=== PATIENT | female | born 1970 | race Caucasian/White ===

== ENCOUNTER 2021-02-20 18:13 | Emergency (ER) | payer OTHER ==
[~2021-02-20] VITALS: Ht 160 cm; Wt 90.7 kg
[~2021-02-20 18:13] MED LIST: FLUO10; FLUO20; FLUO20 PO; IBUPROFEN PO; MULVITMINE PO; OXYACE5T PO
== END 2021-02-20 19:36 | disposition home or self-care (01) ==
LOC: ER 18:13
DX: U07.1 COVID-19 (principal)
CPT/HCPCS: 99283-25

== ENCOUNTER → 2022-12-02 | Outpatient (CLI) | payer OTHER ==
[2022-12-02 14:41] LABS: Percent Saturation 14.4 % (15.0-50.0)
== END | disposition home or self-care (01) ==
LOC: LAB SHORT 09:44 → LAB 09:44
PROVIDERS: Internal Medicine Hematology & Oncology
DX: D50.0 Iron deficiency anemia secondary to blood loss (chronic) (principal)
CPT/HCPCS: 82728; 83540; 83550

== ENCOUNTER 2023-02-25 10:07 | Day surgery (SDC) | payer OTHER ==
[2023-02-23 16:05] LABS: BASOPHILS ABSOLUTE AUTO 0.04 K/mm3 (0.00-0.23); BASOPHILS PERCENT AUTO 1 % (0-2); EOSINOPHILS ABSOLUTE AUTO 0.16 K/mm3 (0.00-0.68); EOSINOPHILS PERCENT AUTO 2 % (0-6); Hematocrit 40.6 % (33.0-51.0); Hemoglobin 13.6 g/dL (11.5-16.0); IMMATURE GRAN ABSOLUTE AUTO 0.02 K/mm3 (0.00-0.10); IMMATURE GRAN PERCENT AUTO 0 % (0-1); LYMPHOCYTES ABSOLUTE AUTO 2.35 K/mm3 (0.84-5.20); LYMPHOCYTES PERCENT AUTO 34 % (21-46); MONOCYTES ABSOLUTE AUTO 0.35 K/mm3 (0.16-1.47); MONOCYTES PERCENT AUTO 5 % (4-13); Mean Corpuscular HGB 29.7 pg (26.0-34.0); Mean Corpuscular HGB Conc 33.5 g/dL (31.5-36.5); Mean Corpuscular Volume 89 fL (80-100); Mean Platelet Volume 10.8 fL (9.1-12.4); NEUTROPHILS ABSOLUTE AUTO 4.07 K/mm3 (1.96-9.15); NEUTROPHILS PERCENT AUTO 58 % (41-73); Platelet Count 230 K/mm3 (150-400); RDW Coefficient Variation 13.7 % (11.7-14.2); RDW Standard Deviation 44.1 fL (35.1-46.3); Red Blood Cell Count 4.58 M/mm3 (3.80-5.20); White Blood Cell Count 6.99 K/mm3 (4.00-11.30)
[2023-02-25] VITALS (16 sets, daily range): BP systolic 109–158; BP diastolic 63–107
[~2023-02-25] VITALS: Ht 160 cm; Wt 91.1 kg
--- NOTE | 2023-02-25 11:03 | NUR ---
Ambulatory in Day Surgery. History, Chart, Medications and Allergies reviewed before start of procedure. Lungs clear T/O to Auscultation. Patient confirms NPO status and agrees with scheduled surgery. Pre-Op teaching done. Pt verbalizes understanding. Patient States Post-Procedure ride home has been arranged. PT BELONGINGS PLACED UNDER[facility]ATH [facility] FOR SAFEKEEPING.
--- NOTE | 2023-02-25 16:56 | NUR ---
PT ARRIVED TO THE ROOM FROM PACU AT APPROXIMATELY 1650. PT DENIES PAIN AND NAUSEA. SHE IS TOLERATING CLEAR LIQUIDS. SCANT VAGINAL BLEEDING. ABD LAP SITES X4 CLOSED WITH TISSUE ADHESIVE, NO DRAINAGE. PT'S FAMILY PRESENT FOR SUPPORT. PLAN FO CARE ONGOING.
--- NOTE | 2023-02-25 19:24 | NUR ---
SHIFT SUMMARY PT IS POD#0 FROM [facility] LAP HYSTER WITH DR. CALVILLO. PT DENIES PAIN. DUVAL CATH OUT AND PT HAS VOIDED. PT TOLERATING PO. REPORT GIVEN TO HITESH BALDERRAMA.
[2023-02-26 02:41] VITALS: BP 143/67
[2023-02-26 04:46] LABS: BASOPHILS ABSOLUTE AUTO 0.01 K/mm3 (0.00-0.23); BASOPHILS PERCENT AUTO 0 % (0-2); EOSINOPHILS PERCENT AUTO 0 % (0-6); Hematocrit 37.5 % (33.0-51.0); IMMATURE GRAN ABSOLUTE AUTO 0.06 K/mm3 (0.00-0.10); IMMATURE GRAN PERCENT AUTO 0 % (0-1); LYMPHOCYTES ABSOLUTE AUTO 1.16 K/mm3 (0.84-5.20); LYMPHOCYTES PERCENT AUTO 9 % (21-46); MONOCYTES ABSOLUTE AUTO 0.56 K/mm3 (0.16-1.47); MONOCYTES PERCENT AUTO 4 % (4-13); Mean Corpuscular HGB 30.5 pg (26.0-34.0); Mean Corpuscular HGB Conc 34.7 g/dL (31.5-36.5); Mean Corpuscular Volume 88 fL (80-100); Mean Platelet Volume 10.2 fL (9.1-12.4); NEUTROPHILS ABSOLUTE AUTO 11.59 K/mm3 (1.96-9.15); NEUTROPHILS PERCENT AUTO 87 % (41-73); Platelet Count 250 K/mm3 (150-400); RDW Coefficient Variation 13.6 % (11.7-14.2); RDW Standard Deviation 43.4 fL (35.1-46.3); Red Blood Cell Count 4.26 M/mm3 (3.80-5.20); White Blood Cell Count 13.38 K/mm3 (4.00-11.30)
--- NOTE | 2023-02-26 07:00 | NUR ---
TRANSPORTATION ATTENDANT EMANI NORTON PROVIDE SIGNIFICANT PORTION OF PT CARE TONIGHT ALLOWING THIS RN TO PROVIDE MORE CRITICAL CARE TO OTHER IN NEED.
[2023-02-26 07:44] VITALS: BP 121/78
--- NOTE | 2023-02-26 08:00 | NUR ---
DISCHARGE SUMMARY PT [id number], VSS/RA, AVERY PO, VOIDING, AMB INDEPENDENTLY, PAIN MANAGED, IVs DC'D. POD1, INCISIONS SITES CDI, ABD BINDER ON. DC INS PROVIDED. PT REP UNDERSTANDING THOSE INSTRUCTIONS. LEFT FLOOR, DECLINED WC, WITH ALL PERSONAL POSSESSIONS INCLUDING DC INS, TO GO HOME WITH BF/INSPECTOR TUBES.
== END 2023-02-26 09:00 | disposition home or self-care (01) ==
LOC: ORSCMMR 10:07 → ORD 11:30 → SURS 16:37 → ORSCMMR 02-26 09:00
PROVIDERS: Obstetrics & Gynecology
DX: N92.1 Excessive and frequent menstruation with irregular cycle (principal); N80.03 Adenomyosis of the uterus; D25.0 Submucous leiomyoma of uterus; D50.0 Iron deficiency anemia secondary to blood loss (chronic); N94.6 Dysmenorrhea, unspecified; N83.292 Other ovarian cyst, left side; N83.291 Other ovarian cyst, right side; K21.9 Gastro-esophageal reflux disease without esophagitis; F41.9 Anxiety disorder, unspecified; Z79.899 Other long term (current) drug therapy; E66.9 Obesity, unspecified; Z68.35 Body mass index [BMI] 35.0-35.9, adult
CPT/HCPCS: 58571; S2900; 36415; 84702; 85025; 86850; 86900; 86901; 88307; A9270; J0690; J1100; J1170; J1885; J2250; J2371; J2405; J2704; J3010; J7120

== ENCOUNTER 2024-08-21 14:29 | Day surgery (SDC) | payer OTHER ==
[~2024-08-21 14:29] MED LIST changes: +BENADRYL25 MG PO; +MASOPHEN500 M3 PO; +Norco 5-325 Ta1 EACH PO; +TUMS500 MG PO
== END 2024-08-21 23:00 | disposition home or self-care (01) ==
LOC: VAS 14:29 → RAD 15:00 → VAS 23:00 → RAD 08-28 09:00
DX: T82.9XXA Unspecified complication of cardiac and vascular prosthetic device, implant and graft, initial encounter (principal); M79.601 Pain in right arm; M54.2 Cervicalgia; C18.9 Malignant neoplasm of colon, unspecified; C79.9 Secondary malignant neoplasm of unspecified site
CPT/HCPCS: 36598; 93971